=== PATIENT | male | born 1975 | race Caucasian/White ===

== ENCOUNTER 2023-03-09 10:41 | Emergency (ER) | payer SELFPAY ==
[2023-03-09 10:43] VITALS: BP 134/89; PULSE 59; RESP 15; TEMP 37.1; O2SAT 99; BMI 27.8
[2023-03-09 11:40] VITALS: BP 117/79; PULSE 59; RESP 15; TEMP 37; O2SAT 99
[2023-03-09] MEDS: LIDOCAINE 5% PATCH 1 EACH TOP (11:40)
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
== END 2023-03-09 11:49 | disposition home or self-care (01) ==
PROVIDERS: Emergency Provider Student in an Organized Health Care Education/Training Program
DX: M25.511 Pain in right shoulder (principal); W01.0XXA Fall on same level from slipping, tripping and stumbling without subsequent striking against object, initial encounter
CPT/HCPCS: 99282

== ENCOUNTER 2023-10-31 12:24 | Emergency (ER) | payer MEDICARE, SELFPAY ==
[2023-10-31 12:27] VITALS: BP 127/90; PULSE 74; RESP 16; TEMP 36.8; O2SAT 99; BMI 26.2
[2023-10-31 14:57] VITALS: PULSE 63; O2SAT 99
[2023-10-31 14:58] VITALS: BP 125/81; PULSE 52; O2SAT 100
--- NOTE | 2023-10-31 20:56 | ED.BACK ---
HPI - Back Pain/Injury General Chief Complaint: Back Pain/Injury Stated Complaint: lower back px Time Seen by Provider: 10/31/23 16:32 Source: patient History of Present Illness HPI Narrative: Left without seeing any provider Related Data Allergies Allergy/AdvReac Type Severity Reaction Status Date / Time No Known Drug Allergies Allergy Verified 03/09/23 10:48 Patient History Social History Smoking Status: Current every day smoker Smoking Status: Current every day smoker tobacco type: cigarettes alcohol intake frequency: holidays/special occasions only Substance Use Type: does not use Exam Initial Vital Signs Initial Vital Signs: Vital Signs Temperature 98.2 F 10/31/23 12:27 Pulse Rate 74 10/31/23 12:27 Respiratory Rate 16 10/31/23 12:27 Blood Pressure 127/90 10/31/23 12:27 Pulse Oximetry 99 10/31/23 12:27 Oxygen Delivery Method Room Air 10/31/23 12:27 Course Vital Signs Vital signs: Vital Signs - 8 hr 10/31/23 14:57 10/31/23 14:58 10/31/23 14:58 Pulse Rate 63 52 L Blood Pressure 125/81 Pulse Oximetry 99 100 Discharge Plan Departure Patient Disposition: Left Without Being Seen Clinical Impression: Patient left without being seen
== END 2023-10-31 16:40 | disposition left against medical advice (07) ==
PROVIDERS: Emergency Provider Emergency Medicine
CPT/HCPCS: 99281